=== PATIENT | female | born 1950 | race Caucasian/White ===

== ENCOUNTER 2020-09-04 17:34 | Inpatient (IN) | payer MEDICARE ==
[~2020-09-04] VITALS: Ht 160 cm; Wt 66.4 kg
--- NOTE | 2020-09-04 17:37 | ED Chest Pain ---
General Chief Complaint: Chest Pain Stated Complaint: CHEST PAIN Source: patient History of Present Illness Date Seen by Provider: September 04, 2020 Time Seen by Provider: 17:37 Initial Comments 70-year-old female presents with substernal chest pain. She reports the pain is about 2 hours ago. Patient reports the pain started after she took some ibuprofen. She reports that she frequently gets indigestion after taking ibuprofen but this was different. Reports the pain radiated across the bilateral aspect of her chest. When episode she had some left arm pain, the next episode she has some right arm pain. She is having some mild discomfort at this time. She has no shortness of breath, no nausea vomiting diaphoresis. The pain does not radiate in her back. Allergies and Home Medications Allergies Coded Allergies: No Known Drug Allergies (Unverified , 09/04/20) Patient Home Medication List Home Medication List Reviewed: Yes Review of Systems Review of Systems Constitutional: No chills, No fever Respiratory: Denies Cough, Denies Shortness of Air Cardiovascular: See HPI, Chest Pain Gastrointestinal: See HPI; Denies Diarrhea, Denies Nausea, Denies Vomiting Genitourinary: No Symptoms Reported Musculoskeletal: no symptoms reported Skin: no symptoms reported Psychiatric/Neurological: No Symptoms Reported Endocrine: No Symptoms Reported Hematologic/Lymphatic: No Symptoms Reported Past Bwxwdae-Gvvddv-Meyolu Hx Past Med/Social Hx: Reviewed Nursing Past Med/Soc Hx Physical Exam Vital Signs Vital Signs - First Documented 09/04/20 17:36 Temp 36.4 Pulse 68 Resp 16 B/P (MAP) 191/91 (124) Pulse Ox 99 O2 Delivery Room Air Capillary Refill : Height, Weight, BMI Height: '" Weight: lbs. oz. 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 Skin: Normal Color, Warm/Dry Progress/Results/Core Measures Results/Orders Lab Results Laboratory Tests Test 09/04/20 17:45 09/04/20 19:40 Range/Units White Blood Count 8.3 4.3-11.0 10^3/uL Red Blood Count 3.51 L 4.35-5.85 10^6/uL Hemoglobin 10.5 L 11.5-16.0 G/DL Hematocrit 34 L 35-52 % Mean Corpuscular Volume 97 80-99 FL Mean Corpuscular Hemoglobin 30 25-34 PG Mean Corpuscular Hemoglobin Concent 31 L 32-36 G/DL Red Cell Distribution Width 14.5 10.0-14.5 % Platelet Count 318 130-400 10^3/uL Mean Platelet Volume 10.0 7.4-10.4 FL Immature Granulocyte % (Auto) 0 % Neutrophils (%) (Auto) 57 42-75 % Lymphocytes (%) (Auto) 25 12-44 % Monocytes (%) (Auto) 13 H 0-12 % Eosinophils (%) (Auto) 4 0-10 % Basophils (%) (Auto) 1 0-10 % Neutrophils # (Auto) 4.8 1.8-7.8 X 10^3 Lymphocytes # (Auto) 2.1 1.0-4.0 X 10^3 Monocytes # (Auto) 1.1 H 0.0-1.0 X 10^3 Eosinophils # (Auto) 0.4 H 0.0-0.3 10^3/uL Basophils # (Auto) 0.1 0.0-0.1 10^3/uL Immature Granulocyte # (Auto) 0.0 0.0-0.1 10^3/uL Sodium Level 139 135-145 MMOL/L Potassium Level 5.1 H 3.6-5.0 MMOL/L Chloride Level 105 98-107 MMOL/L Carbon Dioxide Level 23 21-32 MMOL/L Anion Gap 11 5-14 MMOL/L Blood Urea Nitrogen 22 H 7-18 MG/DL Creatinine 1.52 H 0.60-1.30 MG/DL Estimat Glomerular Filtration Rate 34 BUN/Creatinine Ratio 14 Glucose Level 117 H 70-105 MG/DL Calcium Level 9.6 8.5-10.1 MG/DL Corrected Calcium 9.5 8.5-10.1 MG/DL Magnesium Level 2.3 1.6-2.4 MG/DL Total Bilirubin 0.2 0.1-1.0 MG/DL Aspartate Amino Transf (AST/SGOT) 15 5-34 U/L Alanine Aminotransferase (ALT/SGPT) 10 0-55 U/L Alkaline Phosphatase 88 40-136 U/L Myoglobin 35.1 10.0-92.0 NG/ML Troponin I < 0.30 0.61 *H <0.30 NG/ML Total Protein 6.8 6.4-8.2 GM/DL Albumin 4.1 3.2-4.5 GM/DL Lipase 80 H 8-78 U/L My Orders Orders - WISEMAN,FRANCISCO J L DO Cbc With Automated Diff (09/04/20 17:41) Magnesium (09/04/20 17:41) Chest 1 View Ap/Pa Only (09/04/20 17:41) Ekg Tracing (09/04/20 17:41) Comprehensive Metabolic Panel (09/04/20 17:41) Myoglobin Serum (09/04/20 17:41) Protime With Inr (09/04/20 17:41) Partial Thromboplastin Time (09/04/20 17:41) Monitor-Rhythm Ecg Trace Only (09/04/20 17:41) Lipid Panel (09/05/20 06:00) Aspirin Chewable Tablet (Baby Aspirin Ch (09/04/20 17:45) Ed Iv/Invasive Line Start (09/04/20 17:41) Troponin I Fs (09/04/20 17:41) Lipase (09/04/20 17:46) Ekg Tracing (09/04/20 19:33) Troponin I Fs (09/04/20 19:33) Enoxaparin Injection (Lovenox Injection) (09/04/20 20:15) Nitroglycerin Ointment (Nitrobid Ointme (09/05/20 00:00) Nitroglycerin Ointment (Nitrobid Ointme (09/04/20 20:20) Medications Given in ED Current Medications Medications Dose Ordered Sig/Song Route Start Time Stop Time Status Last Admin Dose Admin Aspirin 324 mg ONCE ONCE PO 09/04/20 17:45 09/04/20 17:46 DC 09/04/20 17:57 324 MG Vital Signs/I&O 09/04/20 09/04/20 17:36 17:45 Temp 36.4 Pulse 68 Resp 16 B/P (MAP) 191/91 (124) Pulse Ox 99 O2 Delivery Room Air Room Air Progress Progress Note : Progress Note Patient chest pain had resolved shortly after arriving. Patient's initial troponin was less than 0.30. 2-hour troponin was 0.61. Called and discussed with Dr. Santamaria and Dr. Kelly. Patient to be admitted to [facility], cardiac stepdown with probable heart catheterization in the a.m. Initial ECG Impression Date: September 04, 2020 Initial ECG Impression Time: 17:37 Initial ECG Rhythm: Normal Sinus Initial ECG Intervals: Normal Initial ECG Impression: Nonspecific Changes Comment no acute st elevation EKG : EKG Time: 19:40 Rhythm: Normal Sinus Intervals: Normal ECG Comparisson: Unchanged ECG Impression: Normal Departure Communication (Admissions) Time/Spoke to Admitting Phy: 20:15 Okay to admit to cardiac stepdown Time/Spoke to Consulting Phy: 20:15 Admit to cardiac stepdown, nitro paste, Lovenox, daily aspirin, n.p.o. after midnight Impression Primary Impression: Non-STEMI (non-ST elevated myocardial infarction) Disposition: 30 STILL A PATIENT Condition: Stable Admissions Decision to Admit Reason: Admit from ER (General) Decision to Admit/Date: September 04, 2020 Time/Decision to Admit Time: 20:15 Transfer Method of Transfer: EMS Departure-Patient Inst. Referrals: CARLIE ENGLISH MD (PCP/Family) Primary Care Physician FRANCISCO J WISEMAN DO September 04, 2020 17:37
[2020-09-04] MEDS ORDERED: ASPIRIN 81 MG CHEW (CHILDREN'S ASA) PO ONE (17:45)
--- NOTE | 2020-09-04 17:59 | Diagnostic Imaging Report ---
INDICATION: Chest pain. COMPARISON: None. FINDINGS: Single frontal view of the chest demonstrates normal heart size and pulmonary vascularity. The lungs are well aerated and clear. No large pleural effusion or pneumothorax is seen. The visualized osseous structures show no acute abnormalities. IMPRESSION: 1. No acute cardiopulmonary process. Dictated by: Dictated on workstation # [id number]
[2020-09-04 18:02] LABS: WHITE BLOOD COUNT 8.3 10^3/uL (4.3-11.0)
[2020-09-04 18:03] LABS: BASOPHILS # (AUTO) 0.1 10^3/uL (0.0-0.1); BASOPHILS % (AUTO) 1 % (0-10); EOSINOPHILS # (AUTO) 0.4 10^3/uL (0.0-0.3); EOSINOPHILS % (AUTO) 4 % (0-10); HEMATOCRIT 34 % (35-52); HEMOGLOBIN 10.5 G/DL (11.5-16.0); LYMPHOCYTES # (AUTO) 2.1 X 10^3 (1.0-4.0); LYMPHOCYTES % (AUTO) 25 % (12-44); MEAN CORPUSCULAR HEMOGLOBIN 30 PG (25-34); MEAN CORPUSCULAR HGB CONC 31 G/DL (32-36); MEAN CORPUSCULAR VOLUME 97 FL (80-99); MONOCYTES # (AUTO) 1.1 X 10^3 (0.0-1.0); MONOCYTES % (AUTO) 13 % (0-12); NEUTROPHILS # (AUTO) 4.8 X 10^3 (1.8-7.8); NEUTROPHILS % (AUTO) 57 % (42-75); PLATELET COUNT 318 10^3/uL (130-400)
[2020-09-04 18:18] LABS: ALBUMIN 4.1 GM/DL (3.2-4.5); BILIRUBIN,TOTAL 0.2 MG/DL (0.1-1.0); CALCIUM 9.6 MG/DL (8.5-10.1); CREATININE SERUM 1.52 MG/DL (0.60-1.30); MAGNESIUM 2.3 MG/DL (1.6-2.4); TOTAL PROTEIN 6.8 GM/DL (6.4-8.2)
[2020-09-04 18:19] LABS: LIPASE 80 U/L (8-78)
[2020-09-04 18:22] LABS: POTASSIUM 5.1 MMOL/L (3.6-5.0)
[2020-09-04] MEDS ORDERED: ENOXAPARIN 60 MG/0.6 ML (LOVENOX) SYR SC SCH (20:15)
[2020-09-04] MEDS ORDERED: NITROGLYCERIN 2% OINT 1 GM UNIT DOSE PACKET ONE (20:20)
[2020-09-05] MEDS ORDERED: NITROGLYCERIN 2% OINT 1 GM UNIT DOSE PACKET TOP SCH
[2020-09-05] MEDS: NITROGLYCERIN 2% OINT 1 GM UNIT DOSE PACKET TOP SCH ×3 (00:40→13:47)
[2020-09-05 05:50] LABS: TRIGLYCERIDES 114 MG/DL (<150); VLDL CHOLESTEROL 23 MG/DL (5-40)
[2020-09-05 05:55] LABS: CHOLESTEROL 212 MG/DL (< 200)
[2020-09-05 05:56] LABS: HDL CHOLESTEROL 49 MG/DL (40-60)
[2020-09-05 07:42] LABS: PROTHROMBIN TIME PATIENT 13.9 SEC (12.2-14.7)
[2020-09-05] MEDS ORDERED: ENOXAPARIN 80 MG/0.8 ML (LOVENOX) SYR SC SCH (09:00)
[2020-09-05] MEDS: ASPIRIN E.C. 81 MG (ECOTRIN) TAB PO SCH (09:13)
[2020-09-05] MEDS ORDERED: HEParin (CATH LAB) 2,000 ML IV ONE (09:23)
[2020-09-05] MEDS ORDERED: LIDOCAINE 1% INJ 20 ML 20 ML VIAL ONE (09:23)
[2020-09-05] MEDS ORDERED: NS IV 1000 ML 1,000 ML IV SCH ×2 (09:30→12:30)
--- NOTE | 2020-09-05 09:36 | Consultation-Cardiology ---
HPI-Cardiology Cardiology Consultation Date of Consultation 09/05/20 Date of Admission 09/04/20 Time Seen by Provider: 09:10 Indication: NSTEMI HPI Pt is a 70 y/o F with history of HTN, hyperlipidemia, LVH, and recent vertebral fracture who arrived at [facility] ED yesterday via personal conveyance for chest pain. Pt had back surgery a month ago and yesterday was her first day returning to work. Before her surgery Pt was previously very active and never had any cardiac issues. Around 15:00 yesterday she states she began having chest pain that radiated down her left arm and across her chest. She initially thought this was indigestion from her advil she had been taking for her back, but the pain worsened and so they went to ED. In the ED she was given aspirin that improved her pain and she was noted to have a <0.3 troponin which eventually west to 0.6, and now 1.72 today. EKG findings were normal and she was diagnosed with NSTEMI and Dr. Kelly was consulted. Plan to do cardiac catheterization today. Home Medications & Allergies Allergies: Coded Allergies: No Known Drug Allergies (Unverified , 09/04/20) Home Medication List Reviewed: Yes VCY-Bywvoe-Pzklfx Hx Patient Social History Employed/Student: employed Recreational Drug Use: No Smoking Status: Former Smoker Type Used: Cigarettes 2nd Hand Smoke Exposure: No Recent Hopitalizations: No Have you traveled recently?: No Alcohol Use?: No Immunizations Up To Date Date of Influenza Vaccine: Feb 05, 2020 Past Medical History Discussed below Family Medical History Family Medical Hx Father has history of coronary artery disease Review of Systems-General Review of Systems Constitutional: see HPI; No chills, No fever EENTM: see HPI; No blurred vision, No double vision Respiratory: see HPI; No cough, No dyspnea on exertion, No hemoptysis, No orthopnea, No phlegm, No short of breath, No stridor, No wheezing, No other Cardiovascular: see HPI, chest pain; No edema, No Hx of Intervention, No palpitations, No syncope, No vascular heart diseas, No other Gastrointestinal: No RUQ, No LUQ Genitourinary: see HPI; No decreased output, No discharge Musculoskeletal: no symptoms reported, see HPI Skin: no symptoms reported, see HPI Psychiatric/Neurological: No Symptoms Reported, See HPI Reviewed Test Results Reviewed Test Results Lab Laboratory Tests Test 09/04/20 17:45 09/04/20 19:40 09/05/20 05:15 09/05/20 07:45 Range/Units White Blood Count 8.3 4.3-11.0 10^3/uL Red Blood Count 3.51 L 4.35-5.85 10^6/uL Hemoglobin 10.5 L 11.5-16.0 G/DL Hematocrit 34 L 35-52 % Mean Corpuscular Volume 97 80-99 FL Mean Corpuscular Hemoglobin 30 25-34 PG Mean Corpuscular Hemoglobin Concent 31 L 32-36 G/DL Red Cell Distribution Width 14.5 10.0-14.5 % Platelet Count 318 130-400 10^3/uL Mean Platelet Volume 10.0 7.4-10.4 FL Immature Granulocyte % (Auto) 0 % Neutrophils (%) (Auto) 57 42-75 % Lymphocytes (%) (Auto) 25 12-44 % Monocytes (%) (Auto) 13 H 0-12 % Eosinophils (%) (Auto) 4 0-10 % Basophils (%) (Auto) 1 0-10 % Neutrophils # (Auto) 4.8 1.8-7.8 X 10^3 Lymphocytes # (Auto) 2.1 1.0-4.0 X 10^3 Monocytes # (Auto) 1.1 H 0.0-1.0 X 10^3 Eosinophils # (Auto) 0.4 H 0.0-0.3 10^3/uL Basophils # (Auto) 0.1 0.0-0.1 10^3/uL Immature Granulocyte # (Auto) 0.0 0.0-0.1 10^3/uL Sodium Level 139 135-145 MMOL/L Potassium Level 5.1 H 3.6-5.0 MMOL/L Chloride Level 105 98-107 MMOL/L Carbon Dioxide Level 23 21-32 MMOL/L Anion Gap 11 5-14 MMOL/L Blood Urea Nitrogen 22 H 7-18 MG/DL Creatinine 1.52 H 0.60-1.30 MG/DL Estimat Glomerular Filtration Rate 34 BUN/Creatinine Ratio 14 Glucose Level 117 H 70-105 MG/DL Calcium Level 9.6 8.5-10.1 MG/DL Corrected Calcium 9.5 8.5-10.1 MG/DL Magnesium Level 2.3 1.6-2.4 MG/DL Total Bilirubin 0.2 0.1-1.0 MG/DL Aspartate Amino Transf (AST/SGOT) 15 5-34 U/L Alanine Aminotransferase (ALT/SGPT) 10 0-55 U/L Alkaline Phosphatase 88 40-136 U/L Myoglobin 35.1 10.0-92.0 NG/ML Troponin I < 0.30 0.61 *H 1.720 *H <0.028 NG/ML Total Protein 6.8 6.4-8.2 GM/DL Albumin 4.1 3.2-4.5 GM/DL Lipase 80 H 8-78 U/L Prothrombin Time 13.9 12.2-14.7 SEC INR Comment 1.0 0.8-1.4 Activated Partial Thromboplast Time 36 H 24-35 SEC Triglycerides Level 114 <150 MG/DL Cholesterol Level 212 H < 200 MG/DL LDL Cholesterol Direct 157 H 1-129 MG/DL VLDL Cholesterol 23 5-40 MG/DL HDL Cholesterol 49 40-60 MG/DL Laboratory Tests 09/04/20 17:45: Troponin I < 0.30 09/04/20 19:40: Troponin I 0.61 09/05/20 07:45: Troponin I 1.720 Physical Exam Physical Exam Vital Signs Vital Signs - First Documented 09/04/20 17:36 Temp 36.4 Pulse 68 Resp 16 B/P (MAP) 191/91 (124) Pulse Ox 99 O2 Delivery Room Air Capillary Refill : Less Than 3 Seconds Height, Weight, BMI Height: '" Weight: lbs. oz. 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 Hypertension, restart home medication monitor blood pressure Hyperlipidemia, evaluate lipid profile. Questionable underlying renal insufficiency, creatinine level is normal. Continue to monitor Hyperkalemia, continue to monitor Vertebral fractures, managed by ortho team at [place] will follow up after hospitalization Family history of atherosclerosis This is Dr. Kelly, I have seen and evaluated the patient with the medical student, interviewed the patient and performed physical examination Discussed the management plan, agree with the current scribed note, I made few modification using italic found Clinical Quality Measures AMI/AHF: ASA po Prior to arrival: No Supervisory-Addendum Brief Verification & Attestation Participated in pt care: history, MDM, physical Personally performed: exam, history, MDM, supervision of care Care discussed with: Medical Student Procedures: n/a Results interpretation: Verified all documentation Verification and Attestation of Medical Student E/M Service A medical student performed and documented this service in my presence. I reviewed and verified all information documented by the medical student and made modifications to such information, when appropriate. I personally performed the physical exam and medical decision making. Barbara Kelly, September 05, 2020,09:59 MILTON PALMER MED STUDENT September 05, 2020 9:36 am BARBARA KELLY MD September 05, 2020 10:00 am
--- NOTE | 2020-09-05 10:00 | Conscious Sedation/ASA ---
Conscious Sedation Pre-Proced Time 10:00 ASA Score 3 For ASA 3 and 4: Consider anesthesia and medical clearance. Also, for patients with a history of failed moderate sedation consider anesthesia. Airway Lungs Heart ASA score ASA 1: a normal healthy patient ASA 2: a patient with a mild systemic disease (mid diabetes, controlled hypertension, obesity x ASA 3: a patient with a severe systemic disease that limits activity (angina, COPD, prior Myocardial infarction) ASA 4: a patient with an incapacitating disease that is a constant threat to life (CHF, renal failure) ASA 5: a moribund patient not expected to survive 24 hrs. (ruptured aneurysm) ASA 6: a declared brain- patient whose organs are being harvested. For emergent operations, add the letter E after the classification Mallampati Classification Grade 3 Sedation Plan Analgesia, Amnesia, Plan communicated to team members, Discussed options with patient/fam, Discussed risks with patient/fam The patient is an appropriate candidate to undergo the planned procedure, sedation, and anesthesia. The patient immediately re-assessed prior to indication. BARBARA ECHAVARRIA MD September 05, 2020 10:00 am
[2020-09-05] MEDS ORDERED: fentaNYL INJ 100 MCG/2 ML AMP ONE (11:09)
[2020-09-05] MEDS ORDERED: MIDAZOLAM 5 MG/5 ML (VERSED) VIAL ONE (11:09)
[2020-09-05] MEDS ORDERED: VERAPAMIL 5 MG/2 ML (CALAN) VIAL IV ONE (11:09)
[2020-09-05] MEDS ORDERED: HEParin 1000 UNIT/ML (10ML VIAL) FOR BOLUS ONE (11:09)
[2020-09-05] MEDS ORDERED: NITRO DRIP 25000 MCG/D5W 250 ML IV ONE (11:10)
[2020-09-05 12:30] VITALS: BP 115/73
[2020-09-05] MEDS ORDERED: PATIENT MAY USE OWN MEDS, ALL PO SCH (12:30)
--- NOTE | 2020-09-05 12:35 | Cardiac Cath Report ---
Cardiac Cath Report Physician (s)/Director Credit Risk (s) Physician BARBARA ECHAVARRIA MD Pre-Procedure Diagnosis Pre-Procedure Diagnosis: Non-ST elevation myocardial infarction Post-Procedure Note Procedure Start Date: September 05, 2020 Name of Procedure: Left heart catheterization Left ventriculogram Aortic arch angiogram Findings/Procedure Note PROCEDURE NOTE: 70-year-old lady admitted with non-ST elevation myocardial infarction, cardiac catheterization was recommended. After explaining the procedure to the patient, all pros and cons were explained, all questions were answered. The patient signed the consent and then she was placed on the cardiac catheterization laboratory. Groin was prepped SL fashion local anesthesia was used. Sheath placed in the right radial artery, [place] catheter was advanced to the right coronary artery and angiogram was done then turned to the left coronary system and angiogram was done. I was unable to cross the aortic valve, retracted the catheter and advanced pigtail catheter to the left ventricular cavity, left ventriculogram was done, pressure was done, pullback LV to aorta was done, aortic arch angiogram was done At the end of the procedure the sheath was removed. Vascular band was deployed FINDINGS: Hemodynamics LV 105/24, end-diastolic pressure of 24 Aorta 105/70 mean of 84 ANATOMY: Left Main is free of obstructive disease Left Anterior Descending has subtotal occlusion at the midportion Left Circumflex has moderate to severe stenosis at the midportion Right Coronory Artery has small dissection at the proximal portion, midportion has severe stenosis LV Gram was done showing normal left ventricular size, hypokinesia at the inferior wall, estimated ejection fraction 50% Aorta evaluation done with aortic arch angiogram showing normal aortic arch, no dissection or aneurysm, normal origin of the brachiocephalic artery, left carotid and left subclavian arteries CONCLUSION: 1. Severe triple-vessel disease involving the mid LAD, proximal and mid right coronary artery and mid circumflex artery 2. Normal left ventricular size, mild hypokinesia of the inferior wall, ejection fraction 50% 3. Normal aortic arch and great vessels of the neck DISCUSSION AND RECOMMENDATION: Patient will be referred for evaluation for CABG Hospital course: Patient was admitted and monitored in telemetry, had elevation in troponin, no further episodes of chest pain were noted. Cardiac catheterization was carried out showing multivessel coronary artery disease, arrangements were made to transfer her for evaluation for CABG. Final diagnosis Non-ST elevation myocardial infarction Coronary artery disease Hypertension Hyperlipidemia Anesthesia Type: Conscious Sedation Estimated blood loss (mL): 10 ml Contrast Amount: 44 ml Total Radiation Dose: 273 mGy Post-Procedure Diagnosis Post-operative diagnosis: Non-ST elevation myocardial infarction Coronary artery disease Hypertension Hyperlipidemia BARBARA ECHAVARRIA MD September 05, 2020 12:35 pm
--- NOTE | 2020-09-05 12:39 | Discharge Inst-Post CATH ---
Discharge Inst-CATH/EP Problems Reviewed?: Yes Post Cardiac Cath/EP D/C Inst Follow Up/Plan Appointment with Dr. Kelly's office in 2 to 4 weeks <b>CARDIAC CATH/EP PROCEDURE DISCHARGE INSTRUCTIONS</b> ACTIVITY * Go Home directly and rest. * Limit activity of the leg (or wrist if it was used) for 7 days including aer obics, swimming, jogging, bicycling, etc. * Restrict stair-climbing for 7 days if possible, if not, climb up with your non-cath leg, then bring together on the same step. * Avoid lifting, pushing, pulling or excessive movement of the affected extremi ty for 7 days. * Customary sexual activity may be resumed after 2 days-use caution not to use a position that strains or causes pain to the affected extremity. * No driving for 24 hours. * NO SMOKING. * Avoid straining for bowel movements for 7 days. * Gentle walking on level ground is allowed. * Returning to work will depend on the type of procedure and the results. Your doctor will discuss this with you. CALL YOUR DOCTOR FOR ANY OF THE FOLLOWING: *If bleeding from the puncture site occurs- Apply gentle pressure to site with clean cloth and call your doctor or EMS. * If a knot or lump forms under the skin, increases in size, or causes pain. * If bruising appears to be worsening or moving further down your leg instead of disappearing. * Temperature above 101 F. CARE OF YOUR GROIN INCISION; * Bruising or purple discoloration of the skin near the puncture site is common. * You may shower only, no bathtub bathing for 5 days. Be careful to avoid slipping as your leg may feel stiff. * If a closure device was used on your femoral artery, please see the attached guide regarding care of the device and your leg. * Leave dressing on FOR 24 hours. CARE OF YOUR WRIST INCISION; * Bruising or purple discoloration of the skin near the puncture site is common. * You may shower. * DO NOT submerge wrist. * Leave dressing on FOR 24 hours. BARBARA KELLY MD September 05, 2020 12:39 pm
[2020-09-05 12:45] VITALS: BP 114/68
[2020-09-05 13:00] VITALS: BP 126/70
[2020-09-05 13:15] VITALS: BP 117/70
[2020-09-05 13:30] VITALS: BP 121/66
[2020-09-05] MEDS ORDERED: METO50TA15 PO (13:40)
[2020-09-05] MEDS ORDERED: LOSA50TA63 PO (13:40)
[2020-09-05] MEDS ORDERED: FAMO-144 PO (13:40)
[2020-09-05] MEDS ORDERED: CHOL100048 PO (13:40)
[2020-09-05] MEDS ORDERED: ASA/1TAB3 PO (13:40)
[2020-09-05] MEDS ORDERED: LORA-1025 PO (13:40)
[2020-09-05 14:00] VITALS: BP 125/74
--- NOTE | 2020-09-05 14:22 | Discharge Summary ---
Discharge Summary Hospital Course Was the Problem List Reviewed?: Yes Problems/Dx: (1) Non-STEMI (non-ST elevated myocardial infarction) Status: Acute (2) CAD, multiple vessel Status: Acute Hospital Course Date of Admission: September 04, 2020 at 21:56 Admission Diagnosis : NSTEMI Family Physician/Provider: Dylan Harp MD Date of Discharge: 09/05/20 Discharge Diagnosis: NSTEMI due to multi-vessel CAD Hospital Course: Sonam Mcfarland is a 70 year old female with PMH HTN, HLD, CKD, who presented with chest pain and was admitted with NSTEMI. Cardiology was consulted and assisted with her care. She underwent a left heart catheterization which revealed multi- vessel CAD. Transfer was arranged to [facility] for CABG. Labs and Pending Lab Test: Laboratory Tests 09/04/20 17:45: White Blood Count 8.3, Red Blood Count 3.51L, Hemoglobin 10.5L, Hematocrit 34L, Mean Corpuscular Volume 97, Mean Corpuscular Hemoglobin 30, Mean Corpuscular Hemoglobin Concent 31L, Red Cell Distribution Width 14.5, Platelet Count 318, Mean Platelet Volume 10.0, Immature Granulocyte % (Auto) 0, Neutrophils (%) (Auto) 57, Lymphocytes (%) (Auto) 25, Monocytes (%) (Auto) 13H, Eosinophils (%) (Auto) 4, Basophils (%) (Auto) 1, Neutrophils # (Auto) 4.8, Lymphocytes # (Auto) 2.1, Monocytes # (Auto) 1.1H, Eosinophils # (Auto) 0.4H, Basophils # (Auto) 0.1, Immature Granulocyte # (Auto) 0.0, Sodium Level 139, Potassium Level 5.1H, Chloride Level 105, Carbon Dioxide Level 23, Anion Gap 11, Blood Urea Nitrogen 22H, Creatinine 1.52H, Estimat Glomerular Filtration Rate 34, BUN/Creatinine Ratio 14, Glucose Level 117H, Calcium Level 9.6, Corrected Calcium 9.5, Magnesium Level 2.3, Total Bilirubin 0.2, Aspartate Amino Transf (AST/SGOT) 15, Alanine Aminotransferase (ALT/SGPT) 10, Alkaline Phosphatase 88, Myoglobin 35.1, Troponin I < 0.30, Total Protein 6.8, Albumin 4.1, Lipase 80H 09/04/20 19:40: Troponin I 0.61*H 09/05/20 05:15: Prothrombin Time 13.9, INR Comment 1.0, Activated Partial Thromboplast Time 36H, Triglycerides Level 114, Cholesterol Level 212H, LDL Cholesterol Direct 157H, VLDL Cholesterol 23, HDL Cholesterol 49 09/05/20 07:45: Troponin I 1.720*H Home Meds Active Reported Allergy Relief (Loratadine) 10 Mg Tablet 10 Mg PO DAILY PRN Acid Table Games Dual Rate Supervisor (FAMOTIDINE) (Famotidine) 10 Mg Tablet 10 Mg PO BID PRN Vanquish Caplet (ASA/Acetaminophn/Mag/Alh/Caff) 1 Each Tablet 1 Each PO DAILY PRN Vitamin D3 (Cholecalciferol (Vitamin D3)) 25 Mcg Capsule 25 Mcg PO DAILY Losartan Potassium 50 Mg Tablet 50 Mg PO DAILY Metoprolol Tartrate 50 Mg Tablet 50 Mg PO DAILY Assessment/Pt Instructions Transferred to [facility] for CABG Discharge Planning: <30 minutes discharge planning Discharge Instructions Discharge Diet: No Restrictions Activity as Tolerated: Yes Consultations Cardiology Discharge Physical Examination Vital Signs Vital Signs Date Time Temp Pulse Resp B/P (MAP) Pulse Ox O2 Delivery O2 Flow Rate FiO2 09/05/20 14:00 69 18 125/74 (91) 96 Room Air 09/05/20 13:30 36.4 General Appearance: No Apparent Distress, WD/WN HEENT: PERRL/EOMI, Pharynx Normal Respiratory: Lungs Clear, Normal Breath Sounds, No Respiratory Distress Cardiovascular: Regular Rate, Rhythm, No Edema, No Murmur Gastrointestinal: Normal Bowel Sounds, Non Tender, Soft Extremity: Normal Inspection, Non Tender, No Pedal Edema Skin: Normal Color, Warm/Dry Neurologic/Psychiatric: Alert, Oriented x3, No Motor/Sensory Deficits, Normal Mood/Affect Allergies: Coded Allergies: No Known Drug Allergies (Unverified , 09/04/20) Discharge Summary Date of Admission September 04, 2020 at 21:56 Date of Discharge Discharge Date: September 05, 2020 Discharge Time: 14:19 Admission Diagnosis NSTEMI Consults/Procedures Consulations Cardiology Procedures Left heart catheterization Discharge Diagnosis (1) Non-STEMI (non-ST elevated myocardial infarction) Status: Acute (2) CAD, multiple vessel Status: Acute Clinical Quality Measures AMI/AHF: ASA po Prior to arrival: RIKA Ramirez MD September 05, 2020 14:22
[2020-09-06] MEDS ORDERED: LOSARTAN 50 MG (COZAAR) TAB PO SCH (09:00)
[2020-09-06] MEDS ORDERED: meTOproloL SUCCINATE 50 MG (TOPROL XL) TAB PO SCH (09:00)
== END 2020-09-05 14:41 | disposition short-term general hospital (02) | DRG 282 ==
LOC: EDUNIT# 17:34 → ER FS 17:36 → CSD 21:56
PROVIDERS: ADMIT Internal Medicine; ATTEND Internal Medicine
PROC: 4A023N7 Measurement of Cardiac Sampling and Pressure, Left Heart, Percutaneous Approach (ICD-10-PCS; principal; 2020-09-05)
PROC: B2111ZZ Fluoroscopy of Multiple Coronary Arteries using Low Osmolar Contrast (ICD-10-PCS; 2020-09-05)
PROC: B2151ZZ Fluoroscopy of Left Heart using Low Osmolar Contrast (ICD-10-PCS; 2020-09-05)
PROC: B3101ZZ Fluoroscopy of Thoracic Aorta using Low Osmolar Contrast (ICD-10-PCS; 2020-09-05)
DX: I21.4 Non-ST elevation (NSTEMI) myocardial infarction (principal); I25.10 Atherosclerotic heart disease of native coronary artery without angina pectoris; I10 Essential (primary) hypertension; E78.5 Hyperlipidemia, unspecified; Z87.891 Personal history of nicotine dependence
CPT/HCPCS: 36221; 36415; 71045; 80053; 80061; 83690; 83735; 83874; 84484; 85025; 85610; 85730; 93005; 93041; 93458

== ENCOUNTER 2021-09-29 11:32 | Emergency (ER) | payer MEDICARE ==
[~2021-09-29] VITALS: Ht 160 cm; Wt 66.5 kg
[~2021-09-29 11:32] MED LIST: ASA/1TAB3 PO; CHOL100048 PO; FAMO-144 PO; LORA-1025 PO; LOSA50TA63 PO; METO50TA15 PO
--- NOTE | 2021-09-29 11:42 | ED General ---
General Stated Complaint: SOB History of Present Illness Date Seen by Provider: Sep 29, 2021 Time Seen by Provider: 11:43 Initial Comments 71 yr F with PMH of Iron Deficiency Anemia/ CAD with cath and stents last year, is here with c/o SOB and tiredness which began Thursday. Pt was seen in walk in clinic and given Augmentin for PNA diagnosis. Pt states she has been feeling worse and is more SOB since then. Denies chest pain, hematemesis, abdominal pain, diarrhea, nausea and vomiting, palpitations. Patient has been on iron therapy as well. Patient does not know what is causing iron deficiency anemia. Allergies and Home Medications Allergies Coded Allergies: No Known Drug Allergies (Unverified , 09/04/20) Patient Home Medication List Home Medication List Reviewed: Yes ASA/Acetaminophn/Mag/Alh/Caff (Vanquish Caplet) 1 Each Tablet, 1 EACH PO DAILY PRN for HEADACHE, (Reported) Entered as Reported by: HEMANT VELASCO on 09/05/20 1340 Cholecalciferol (Vitamin D3) (Vitamin D3) 25 Mcg Capsule, 25 MCG PO DAILY, (Repo rted) Entered as Reported by: HEMANT VELASCO on 09/05/20 134 Famotidine (Acid Candle Pourer (FAMOTIDINE)) 10 Mg Tablet, 10 MG PO BID PRN for HEARTBURN, (Reported) Entered as Reported by: HEMANT VELASCO on 09/05/20 134 Loratadine (Allergy Relief) 10 Mg Tablet, 10 MG PO DAILY PRN for ALLERGY SYMPTOMS, (Reported) Entered as Reported by: HEMANT VELASCO on 09/05/20 134 Losartan Potassium (Losartan Potassium) 50 Mg Tablet, 50 MG PO DAILY, (Reported) Entered as Reported by: HEMANT VELASCO on 09/05/20 134 Metoprolol Tartrate (Metoprolol Tartrate) 50 Mg Tablet, 50 MG PO DAILY, (Reported) Entered as Reported by: HEMANT VELASCO on 09/05/20 134 Review of Systems Review of Systems Constitutional: no symptoms reported EENTM: no symptoms reported Respiratory: dyspnea on exertion, orthopnea, short of breath Gastrointestinal: no symptoms reported Genitourinary: no symptoms reported Musculoskeletal: no symptoms reported Skin: no symptoms reported Psychiatric/Neurological: No Symptoms Reported Hematologic/Lymphatic: Anemia Immunological/Allergic: no symptoms reported Past Rqgcrrs-Exwstl-Jarufb Hx Seasonal Allergies Seasonal Allergies: No Past Medical History Surgeries: Yes (hemorrhoidectomy, benign tumor removal both breasts) Respiratory: No Cardiac: Yes Hypertension, Irregular Heartbeat Neurological: No Genitourinary: No Gastrointestinal: No Musculoskeletal: Yes (L3 and T12 fracture) Endocrine: No HEENT: No Cancer: No Psychosocial: No Integumentary: No Blood Disorders: No Physical Exam Vital Signs Vital Signs - First Documented 09/29/21 11:35 Temp 37.1 Pulse 91 Resp 17 B/P (MAP) 108/54 (72) O2 Delivery Room Air Capillary Refill : Height, Weight, BMI Height: '" Weight: lbs. oz. kg; 25.93 BMI Method: General Appearance: Mild Distress, Moderate Distress, Thin HEENT: PERRL/EOMI Neck: Full Range of Motion, Normal Inspection, Non Tender, Supple Respiratory: Lungs Clear, Normal Breath Sounds, No Accessory Muscle Use, Other (moments of tachypnea) Cardiovascular: Regular Rate, Rhythm, No Edema Gastrointestinal: Normal Bowel Sounds, Non Tender, Soft Back: No CVA Tenderness Extremity: Normal Capillary Refill Neurologic/Psychiatric: Alert, Oriented x3, No Motor/Sensory Deficits, Normal Mood/Affect Skin: Pallor Lymphatic: No Adenopathy Focused Exam Lactate Level 09/29/21 11:45: Lactic Acid Level 2.60*H Lactic Acid Level Laboratory Tests Test 09/29/21 11:45 Lactic Acid Level 2.60 MMOL/L (0.50-2.00) *H Progress/Results/Core Measures Suspected Sepsis SIRS Temperature: Pulse: Respiratory Rate: Laboratory Tests 09/29/21 11:45: White Blood Count 17.5H Blood Pressure / Mean: 09/29/21 11:45: Lactic Acid Level 2.60*H Laboratory Tests 09/29/21 11:45: Creatinine 1.32H, INR Comment 1.0, Platelet Count 381, Total Bilirubin 0.3 Results/Orders Lab Results Laboratory Tests Test 09/29/21 11:45 Range/Units White Blood Count 17.5 H 4.3-11.0 10^3/uL Red Blood Count 3.75 L 3.80-5.11 10^6/uL Hemoglobin 6.8 *L 11.5-16.0 g/dL Hematocrit 23 L 35-52 % Mean Corpuscular Volume 62 L 80-99 fL Mean Corpuscular Hemoglobin 18 L 25-34 pg Mean Corpuscular Hemoglobin Concent 29 L 32-36 g/dL Red Cell Distribution Width 20.1 H 10.0-14.5 % Platelet Count 381 130-400 10^3/uL Mean Platelet Volume 8.8 L 9.0-12.2 fL Immature Granulocyte % (Auto) 1 % Neutrophils (%) (Auto) 89 H 42-75 % Lymphocytes (%) (Auto) 4 L 12-44 % Monocytes (%) (Auto) 5 0-12 % Eosinophils (%) (Auto) 0 0-10 % Basophils (%) (Auto) 0 0-10 % Neutrophils # (Auto) 15.6 H 1.8-7.8 10^3/uL Lymphocytes # (Auto) 0.7 L 1.0-4.0 10^3/uL Monocytes # (Auto) 0.9 0.0-1.0 10^3/uL Eosinophils # (Auto) 0.1 0.0-0.3 10^3/uL Basophils # (Auto) 0.1 0.0-0.1 10^3/uL Immature Granulocyte # (Auto) 0.2 H 0.0-0.1 10^3/uL Neutrophils % (Manual) 97 % Lymphocytes % (Manual) 3 % Polychromasia SLIGHT Hypochromasia MODERATE Microcytosis MODERATE Target Cells SLIGHT Elliptocytes SLIGHT Prothrombin Time 13.9 12.2-14.7 SEC INR Comment 1.0 0.8-1.4 Activated Partial Thromboplast Time 39 H 24-35 SEC D-Dimer 3.59 H 0.00-0.49 UG/ML Sodium Level 136 135-145 MMOL/L Potassium Level 3.7 3.6-5.0 MMOL/L Chloride Level 102 98-107 MMOL/L Carbon Dioxide Level 19 L 21-32 MMOL/L Anion Gap 15 H 5-14 MMOL/L Blood Urea Nitrogen 17 7-18 MG/DL Creatinine 1.32 H 0.60-1.30 MG/DL Estimat Glomerular Filtration Rate 43 BUN/Creatinine Ratio 13 Glucose Level 192 H 70-105 MG/DL Lactic Acid Level 2.60 *H 0.50-2.00 MMOL/L Calcium Level 9.1 8.5-10.1 MG/DL Corrected Calcium 9.3 8.5-10.1 MG/DL Magnesium Level 1.9 1.6-2.4 MG/DL Total Bilirubin 0.3 0.1-1.0 MG/DL Aspartate Amino Transf (AST/SGOT) 13 5-34 U/L Alanine Aminotransferase (ALT/SGPT) 9 0-55 U/L Alkaline Phosphatase 88 40-136 U/L Troponin I < 0.30 <0.30 NG/ML Pro-B-Type Natriuretic Peptide 791.6 H <75.0 PG/ML Total Protein 7.0 6.4-8.2 GM/DL Albumin 3.7 3.2-4.5 GM/DL My Orders Orders - DWAINE WINTERS MD Chest Pa/Lat (2 View) (09/29/21 11:49) Cbc With Automated Diff (09/29/21 11:50) Comprehensive Metabolic Panel (09/29/21 11:50) Fibrin Degradation Products (09/29/21 11:50) Magnesium (09/29/21 11:50) Protime With Inr (09/29/21 11:50) Partial Thromboplastin Time (09/29/21 11:50) Ua Culture If Indicated (09/29/21 11:50) Probnp Fs (09/29/21 11:50) Troponin I Fs (09/29/21 11:50) Blood Culture (09/29/21 11:52) Lactic Acid Analyzer (09/29/21 11:52) Ekg Tracing (09/29/21 11:53) Manual Differential (09/29/21 11:45) Ct Angio Chest W (09/29/21 12:36) Sputum Culture (09/29/21 12:37) Ed Iv/Invasive Line Start (09/29/21 12:37) Vital Signs Adult Sepsis Patie Q15M (09/29/21 12:37) O2 (09/29/21 12:37) Remove Rings In Anticipation O (09/29/21 12:37) Ceftriaxone 1 Gm Pre-Mix (Rocephin 1 Gm (09/29/21 12:45) Azithromycin Injection (Zithromax Inject (09/29/21 12:45) Iohexol Injection (Omnipaque 350 Mg/Ml 1 (09/29/21 12:45) Received Contrast (Hold Metformin- Contr (09/29/21 12:45) Sodium Chloride Flush (Catheter Flush Sy (09/29/21 12:45) Ns (Ivpb) (Sodium Chloride 0.9% Ivpb Bag (09/29/21 12:45) Occult Blood Stool (09/29/21 12:48) Medications Given in ED Current Medications Medications Dose Ordered Sig/Song Route Start Time Stop Time Status Last Admin Dose Admin Iohexol 100 ml ONCE ONCE IV 09/29/21 12:45 09/29/21 12:46 DC 09/29/21 13:05 100 ML Sodium Chloride 10 ml NEEDED PRN IV 09/29/21 12:45 09/29/21 13:05 10 ML Sodium Chloride 100 ml ONCE ONCE IV 09/29/21 12:45 09/29/21 12:46 DC 09/29/21 13:05 100 ML Vital Signs/I&O 09/29/21 09/29/21 11:35 11:35 Temp 37.1 Pulse 91 Resp 17 B/P (MAP) 108/54 (72) O2 Delivery Room Air Room Air Capillary Refill : Progress Note : Progress Note 1. ACUTE ANEMIA: - CBC: Hb is 6.8 with MCV of 62 -We only hold 1 unit of blood for trauma, and unable to transfuse patient at this time. Patient will need to be transferred for transfusion. -Fecal occult blood test - Patient has history of chronic iron deficiency anemia. -Patient will be transferred to [facility] for higher level of care with transfusion and ongoing management for sepsis 2. SEPSIS DUE TO PNEUMONIA & PLEURAL EFFUSIONS: - CXR: PNA and pleural effusions, see report -Elevated lactate of 2.60 -WBC of 17.5 with a left shift -Blood cultures x2 taken - UA: -NS IVF bolus stat -Ceftriaxone and azithromycin IV stat 3. ELEVATED D-DIMER: ACUTE PULMONARY EMBOLIS, BILATERAL &LUNG INFARCT - D-dimer is 3.59 - CTA CHEST: bilateral PE with left lower lung infarct - O2 NC, 2L Departure Impression Primary Impression: Acute anemia Additional Impressions: Sepsis Qualified Codes: A41.9 - Sepsis, unspecified organism; R65.20 - Severe sepsis without septic shock Pneumonia Qualified Codes: J18.9 - Pneumonia, unspecified organism Elevated d-dimer Dyspnea Qualified Codes: R06.00 - Dyspnea, unspecified Pulmonary embolism Qualified Codes: I26.99 - Other pulmonary embolism without acute cor pulmonale Infarct of lung Disposition: XFER SHT-TRM HOSP Condition: Critical Admissions Decision to Admit Reason: Admit from ER (General) Decision to Admit/Date: Sep 29, 2021 Time/Decision to Admit Time: 12:00 Transfer Transfer Reason: Exceeds level of care Time Spoke to Accepting Phy: 12:45 Transfer Progress Notes Discussed with Dr. Cox at [facility]. Will transfer. Transfer Facility: [facility] Method of Transfer: EMS Departure-Patient Inst. Referrals: CARLIE ENGLISH MD (PCP) Primary Care Physician DWAINE WINTERS MD Sep 29, 2021 11:42
[2021-09-29 11:59] LABS: BASOPHILS # (AUTO) 0.1 10^3/uL (0.0-0.1); BASOPHILS % (AUTO) 0 % (0-10); EOSINOPHILS # (AUTO) 0.1 10^3/uL (0.0-0.3); EOSINOPHILS % (AUTO) 0 % (0-10); HEMATOCRIT 23 % (35-52); LYMPHOCYTES # (AUTO) 0.7 10^3/uL (1.0-4.0); LYMPHOCYTES % (AUTO) 4 % (12-44); MEAN CORPUSCULAR HEMOGLOBIN 18 pg (25-34); MEAN CORPUSCULAR HGB CONC 29 g/dL (32-36); MEAN CORPUSCULAR VOLUME 62 fL (80-99); MEAN PLATELET VOLUME 8.8 fL (9.0-12.2); MONOCYTES # (AUTO) 0.9 10^3/uL (0.0-1.0); MONOCYTES % (AUTO) 5 % (0-12); NEUTROPHILS # (AUTO) 15.6 10^3/uL (1.8-7.8); NEUTROPHILS % (AUTO) 89 % (42-75); PLATELET COUNT 381 10^3/uL (130-400); WHITE BLOOD COUNT 17.5 10^3/uL (4.3-11.0)
[2021-09-29 12:04] LABS: HEMOGLOBIN 6.8 g/dL (11.5-16.0)
--- NOTE | 2021-09-29 12:08 | Diagnostic Imaging Report ---
INDICATION: SOB/ chest discomfort, left side. TECHNIQUE: Two view chest 12:00 PM CORRELATION STUDY: 09/04/2020 FINDINGS: Poststernotomy with coronary bypass changes, taken place since prior. There is opacity left lung base with likely atelectasis and/or consolidation with pleural effusion and/or pleural thickening. Trace right pleural effusion. Mediastinum configuration however is relatively stable given poststernotomy change. Accentuated thoracic kyphosis with marked compression deformity of a likely T12 vertebral body. Additional kyphoplasty changes lumbar spine. IMPRESSION: 1. Interval sternotomy and apparent coronary artery bypass. 2. Bibasilar opacities left greater than right, likely combination of atelectasis, scarring and/or infiltrate along with some small pleural effusions and/or pleural thickening. Dictated by: Dictated on workstation # [id number]
[2021-09-29 12:11] LABS: PROTHROMBIN TIME PATIENT 13.9 SEC (12.2-14.7)
[2021-09-29 12:23] LABS: ALANINE AMINOTRANSFERASE 9 U/L (0-55); ALBUMIN 3.7 GM/DL (3.2-4.5); ALKALINE PHOSPHATASE 88 U/L (40-136); BILIRUBIN,TOTAL 0.3 MG/DL (0.1-1.0); BUN/CREATININE RATIO 13; CALCIUM 9.1 MG/DL (8.5-10.1); CARBON DIOXIDE 19 MMOL/L (21-32); CHLORIDE 102 MMOL/L (98-107); CREATININE SERUM 1.32 MG/DL (0.60-1.30); GFR ESTIMATED 43; GLUCOSE 192 MG/DL (70-105); MAGNESIUM 1.9 MG/DL (1.6-2.4); POTASSIUM 3.7 MMOL/L (3.6-5.0); SODIUM 136 MMOL/L (135-145)
[2021-09-29 12:30] LABS: FIBRIN DEGRADATION PRODUCTS 3.59 UG/ML (0.00-0.49)
[2021-09-29 12:41] LABS: LYMPHOCYTES % (MANUAL) 3 %; NEUTROPHILS % (MANUAL) 97 %
[2021-09-29 12:42] LABS: ELLIPT/OVALOCYTES SLIGHT; HYPOCHROMASIA MODERATE; MICROCYTOSIS MODERATE; POLYCHROMASIA SLIGHT; TARGET CELLS SLIGHT
[2021-09-29] MEDS ORDERED: AZITHROMYCIN INJECTION 500 MG in NS (IVPB) 250 ML IV ONE (12:45)
[2021-09-29] MEDS ORDERED: CATHETER FLUSH 10 ML SYR IV PRN (12:45)
[2021-09-29] MEDS ORDERED: cefTRIAXone 1 GM PRE-MIX 50 ML IV ONE (12:45)
[2021-09-29] MEDS ORDERED: IOHEXOL 350 MG/ML 100 ML (OMNIPAQUE 350) VIAL IV ONE (12:45)
[2021-09-29] MEDS ORDERED: HOLD METFORMIN - RECEIVED CONTRAST 20 ML VIAL IV SCH (12:45)
[2021-09-29] MEDS ORDERED: NS 100 ML (IVPB) BAG IV ONE (12:45)
--- NOTE | 2021-09-29 13:21 | Diagnostic Imaging Report ---
EXAMINATION: CT angiography of the chest. TECHNIQUE: Contrast enhanced thin section helical images were obtained through the chest with intravenous contrast timed for the optimal opacification of the arterial structures per CTA protocol. Post-processing, reconstructions and interpretation of angiographic images of the vessels was performed. 3D MIP reconstructions were performed and reviewed. All CT scans use one or more of the following dose optimizing techniques: automated exposure control, MA and/or KvP adjustment based on a patient size and exam type, or iterative reconstruction. HISTORY: Shortness of breath and elevated D-dimer COMPARISON: None available. FINDINGS: There is a pulmonary embolism involving all the segmental vessels of the left lower lobe basilar segments. There is a subsegmental embolus in the right lower lobe. There is a small left effusion with left lower lobe infarct. No edema. No pneumothorax. No suspicious nodules. There is no axillary or supraclavicular lymphadenopathy. There is no mediastinal lymphadenopathy. Heart size is normal. There are no coronary artery calcifications. No pericardial effusion. Aorta is normal in caliber. There has been coronary artery bypass grafting. There is a small hiatal hernia. Limited views of the upper abdomen show areas of cortical scarring in both kidneys. There are no suspicious osseus lesions. Show vertebral plana at T12, likely chronic. IMPRESSION: 1. Pulmonary emboli in both lower lobes, left greater than right with infarct in the left lower lobe. No evidence for right heart strain. Critical findings called to Dr. Albarado by Dr. Jaquez on 09/29/2021 at 1:20 PM Dictated by: Dictated on workstation # [id number]
[2021-09-29 15:17] VITALS: BP 117/64
== END 2021-09-29 15:17 | disposition short-term general hospital (02) ==
LOC: EDUNIT# 11:32 → ER FS 11:33
DX: J18.9 Pneumonia, unspecified organism (principal); R65.20 Severe sepsis without septic shock; J91.8 Pleural effusion in other conditions classified elsewhere; I26.99 Other pulmonary embolism without acute cor pulmonale; D50.9 Iron deficiency anemia, unspecified; R79.1 Abnormal coagulation profile; R74.02 Elevation of levels of lactic acid dehydrogenase [LDH]
CPT/HCPCS: 36415; 71046; 71275; 80053; 83605; 83735; 83880; 84484; 85007; 85027; 85379; 85610; 85730; 87040; 93005; Q9967

== ENCOUNTER 2022-03-07 13:51 | Emergency (ER) | payer MEDICARE ==
[~2022-03-07] VITALS: Ht 157.4 cm; Wt 66.5 kg
[2022-03-07 13:51] VITALS: BP 135/93
--- NOTE | 2022-03-07 13:56 | ED Hip Pain/Injury ---
General Stated Complaint: FALL; LT HIP PAIN History of Present Illness Date Seen by Provider: Mar 07, 2022 Time Seen by Provider: 13:55 Initial Comments 71-year-old female presents with left hip pain. Patient reports she was walking out of a restaurant when she tripped on the carpet and fell onto her left hip. She complains that it feels like he is just weak and will hold her. She does not have significant amount of pain. The mild pain and weakness feels to be more into the groin and out on the lateral hip. She is able to lift it and move it without pain. She just wants to have it evaluated to make sure she did not break anything Allergies and Home Medications Allergies Coded Allergies: tramadol (Verified Adverse Reaction, Unknown, 03/07/22) Patient Home Medication List Home Medication List Reviewed: Yes ASA/Acetaminophn/Mag/Alh/Caff (Vanquish Caplet) 1 Each Tablet, 1 EACH PO DAILY PRN for HEADACHE, (Reported) Entered as Reported by: HEMANT VELASCO on 09/05/20 134 Cholecalciferol (Vitamin D3) (Vitamin D3) 25 Mcg Capsule, 25 MCG PO DAILY, (Reported) Entered as Reported by: HEMANT VELASCO on 09/05/20 134 Famotidine (Acid Tarp Repairer (FAMOTIDINE)) 10 Mg Tablet, 10 MG PO BID PRN for HEARTBURN, (Reported) Entered as Reported by: HEMANT VELASCO on 09/05/20 134 Loratadine (Allergy Relief) 10 Mg Tablet, 10 MG PO DAILY PRN for ALLERGY SYMPTOMS, (Reported) Entered as Reported by: HEMANT VELASCO on 09/05/20 134 Losartan Potassium (Losartan Potassium) 50 Mg Tablet, 50 MG PO DAILY, (Reported) Entered as Reported by: HEMANT VELASCO on 09/05/20 134 Metoprolol Tartrate (Metoprolol Tartrate) 50 Mg Tablet, 50 MG PO DAILY, (Reported) Entered as Reported by: HEMANT VELASCO on 09/05/20 134 Review of Systems Constitutional: no symptoms reported EENTM: no symptoms reported Respiratory: no symptoms reported Cardiovascular: no symptoms reported Gastrointestinal: no symptoms reported Genitourinary: no symptoms reported Musculoskeletal: see HPI Skin: no symptoms reported Psychiatric/Neurological: No Symptoms Reported Past Ogmlspv-Lveruw-Nsiamt Hx Seasonal Allergies Seasonal Allergies: No Past Medical History Surgeries: Yes (hemorrhoidectomy, benign tumor removal both breasts) Respiratory: No Cardiac: Yes Hypertension, Irregular Heartbeat Neurological: No Genitourinary: No Gastrointestinal: No Musculoskeletal: Yes (L3 and T12 fracture) Endocrine: No HEENT: No Cancer: No Psychosocial: No Integumentary: No Blood Disorders: No Physical Exam Vital Signs Vital Signs - First Documented 03/07/22 13:51 Temp 36.5 Pulse 67 Resp 16 B/P (MAP) 135/93 (107) Pulse Ox 95 O2 Delivery Room Air Capillary Refill : Height, Weight, BMI Height: '" Weight: lbs. oz. kg; 25.00 BMI Method: General Appearance: No Apparent Distress, WD/WN HEENT: PERRL/EOMI, Moist Mucous Membranes Neck: Full Range of Motion, Normal Inspection, Supple Cardiovascular: Regular Rate, Rhythm, No Edema Respiratory: Lungs Clear, Normal Breath Sounds Gastrointestinal: Non Tender, Soft Extremity: Normal Capillary Refill, Normal Inspection, Normal Range of Motion; No Swelling Neurologic/Psychiatric: Alert, Oriented x3, No Motor/Sensory Deficits, Normal Mood/Affect, warranty administrator II-XII Norm as Tested Skin: Normal Color, Warm/Dry Progress/Results/Core Measures Results/Orders My Orders Orders - FRANCISCO J WISEMAN DO Pelvis With Left Hip 2-3 View (03/07/22 13:57) Vital Signs/I&O 03/07/22 13:51 Temp 36.5 Pulse 67 Resp 16 B/P (MAP) 135/93 (107) Pulse Ox 95 O2 Delivery Room Air Progress Progress Note : Progress Note Patient with a questionable left pubic rami fracture on x-ray. Discussed findings with patient. Discussed treatment is rest. Did discuss with her a CT exam to further evaluate. Patient felt that since there is really no treatment besides rest she would prefer to just try to go home and see how she does over the weekend. That if symptoms worsen over the weekend or next week that she either return to the ER or follow-up with her primary care provider. I feel that is reasonable. Patient was stable and discharged home with return precautions Diagnostic Imaging Diagonstic Imaging: Xray Plain Films/CT/US/NM/MRI: pelvis, hip Comments ate of Exam:03/07/22 PELVIS WITH LEFT HIP 2-3 VIEW Pelvis with left hip 2-3 view INDICATION: Left hip pain after fall. COMPARISON: None available. TECHNIQUE: AP pelvis with AP and lateral views of the hip. FINDINGS: No acute fracture in the proximal left femur. There are some cortical irregularity involving the left inferior pubic ramus which may represent a nondisplaced fracture. 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 No displaced fracture within the sacral ala. Prior vertebral augmentation of the lower lumbar spine. IMPRESSION: 1. There is a potential nondisplaced fracture in the left inferior pubic ramus. Consider CT pelvis without contrast to assess for additional pelvic fractures. 2. No acute fracture in the proximal left femur. Reviewed: Reviewed by Me, Reviewed/Discussed Departure Impression Primary Impression: Contusion of left hip and thigh Qualified Codes: S70.02XA - Contusion of left hip, initial encounter; S70.12XA - Contusion of left thigh, initial encounter Additional Impression: Strain of left inguinal region Disposition: 01 HOME, SELF-CARE Condition: Stable Departure-Patient Inst. Referrals: CARLIE ENGLISH MD (PCP) Primary Care Physician Patient Instructions: Groin Strain ED, Hip Pain ED Add. Discharge Instructions: Tylenol or ibuprofen as needed for discomfort Ice for 10 to 15 minutes at a time 4-5 times daily for the next 36 hours while awake 4% topical lidocaine with menthol cream or gel as needed for pain to the affected area FRANCISCO J WISEMAN DO Mar 07, 2022 13:56
--- NOTE | 2022-03-07 15:09 | Diagnostic Imaging Report ---
Pelvis with left hip 2-3 view INDICATION: Left hip pain after fall. COMPARISON: None available. TECHNIQUE: AP pelvis with AP and lateral views of the hip. FINDINGS: No acute fracture in the proximal left femur. There are some cortical irregularity involving the left inferior pubic ramus which may represent a nondisplaced fracture. 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 No displaced fracture within the sacral ala. Prior vertebral augmentation of the lower lumbar spine. IMPRESSION: 1. There is a potential nondisplaced fracture in the left inferior pubic ramus. Consider CT pelvis without contrast to assess for additional pelvic fractures. 2. No acute fracture in the proximal left femur. Dictated by: Dictated on workstation # [id number]
== END 2022-03-07 15:18 | disposition home or self-care (01) ==
LOC: EDUNIT# 13:51 → ER FS 13:52
DX: S76.212A Strain of adductor muscle, fascia and tendon of left thigh, initial encounter (principal); S70.02XA Contusion of left hip, initial encounter; W01.0XXA Fall on same level from slipping, tripping and stumbling without subsequent striking against object, initial encounter; Y93.01 Activity, walking, marching and hiking
CPT/HCPCS: 73502; 99283

== ENCOUNTER → 2022-10-15 | Outpatient (CLI) | payer MEDICARE ==
--- NOTE | 2022-10-15 09:46 | Diagnostic Imaging Report ---
INDICATION: Left knee pain. AP, oblique, lateral and sunrise views of left knee are obtained. FINDINGS: Surgical clips are seen medial to the knee with minimal cartilage loss in the medial compartment. No acute fracture or dislocation is identified. No abnormal lytic or sclerotic focus is seen, and there is no radiopaque foreign body. IMPRESSION: No acute abnormality. There is minimal cartilage loss in the medial compartment of the knee joint. Dictated by: Dictated on workstation # [id number]
== END ==
LOC: ORTHO 09:20
PROVIDERS: ATTEND Orthopaedic Surgery
DX: M25.562 Pain in left knee (principal)
CPT/HCPCS: 73564; G0463; 99203